=== PATIENT | male | born 1975 | race Caucasian/White ===

== ENCOUNTER 2019-11-25 16:30 | Emergency (ER) | payer MEDICAID, OTHER ==
[~2019-11-25] VITALS: Ht 168.9 cm; Wt 116.1 kg
[2019-11-25 17:13] VITALS: BP 110/70
--- NOTE | 2019-11-25 18:10 | NUR ---
PT SEEN WALKING IN LOBBY WITH STEADY GAIT, NO SIGNS OF DISTRESS.
[2019-11-25 18:56] VITALS: BP 110/70
--- NOTE | 2019-11-25 18:56 | NUR ---
CALLED PT'S NAME IN LOBBY--NO RESPONSE.
--- NOTE | 2019-11-25 18:56 | NUR ---
PATIENT LEFT WITHOUT BEING SEEN BY DR. DASILVA. NO FURTHER CARE PROVIDED FOR PATIENT.
--- NOTE | 2019-11-25 20:43 | NUR ---
PT CALLED FROM LOBBY, NO RESPONSE. PT LWBS
== END 2019-11-25 20:43 | disposition left against medical advice (07) ==
LOC: MED 16:30
DX: R51 Headache (principal); Z53.21 Procedure and treatment not carried out due to patient leaving prior to being seen by health care provider